=== PATIENT | female | born 1960 | race African-American/Black ===

== ENCOUNTER 2018-05-07 18:47 | Emergency (ER) | payer OTHER ==
[~2018-05-07] VITALS: Ht 157.5 cm; Wt 80.3 kg
[2018-05-07 20:25] VITALS: BP 140/79; TEMP 98.1
== END 2018-05-07 20:25 | disposition home or self-care (01) ==
LOC: ED 18:47
DX: N30.80 Other cystitis without hematuria (principal)
CPT/HCPCS: 81000; 87077; 87086; 87088; 87186; 99283